=== PATIENT | female | born 2000 | race Caucasian/White ===

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

== ENCOUNTER 2019-09-27 15:37 | Emergency (ER) | payer SELFPAY ==
[2019-09-27] MEDS ORDERED: DEXAMETHASONE SOD PHOSPHATE 10MG/ML VIAL PO ONE (16:05)
--- NOTE | 2019-09-27 16:11 | Emergency Department Record ---
History of Present Illness - General Chief complaint: Allergic Reaction Stated complaint: POSSIBLE ALLERGIC REACTION Time Seen by Provider: 09/27/19 16:05 Source: Patient Mode of Arrival: Ambulatory Limitations: No limitations - History of Present Illness Initial Comments: Pt to the ED for concern of swelling in the lips and tightness in her throat. Thinks this may be a reaction to a new lip ointment. Pt has asthma by hx. No other new foods, meds, travel. No fever or cough. Tearful during interview. Onset/Timin -: Days(s) Exposure: Unknown Symptoms: Orolingual swelling Severity: Mild Treatment Prior to Arrival: Benadryl, Bronchodilator, Epinephrine Previous Allergy History: None - Related Data Allergies Allergy/AdvReac Type Severity Reaction Status Date / Time No Known Drug Allergies Allergy Verified 09/27/19 15:41 Travel/Exposure Screening - Travel/Exposure Within Last 30 Days Have you traveled within the last 30 days?: No - Travel/Exposure Within Last Year Have you traveled outside the [place] in the last year?: No - Additonal Travel/Exposure Details Have you been exposed to anyone with a communicable illness?: No - Travel Symptoms Symptom Screening: None Review of Systems Constitutional: Denies: Chills, Fever Eyes: Denies: Eye discharge, Eye pain ENT: Reports: As per HPI, Throat pain. Denies: Congestion Respiratory: Denies: Cough Cardiovascular: Denies: Chest pain, Syncope Endocrine: Denies: Fatigue Gastrointestinal: Denies: Abdominal pain, Constipation, Nausea, Vomiting Musculoskeletal: Denies: Back pain Skin: Denies: Bruising, Rash Neurological: Denies: Confusion, Tingling Psychiatric: Reports: Anxiety Hematological/Lymphatic: Denies: Anemia Past Medical History - SOCIAL HISTORY Smoking Status: Never smoker Alcohol Use: None Drug Use: None - RESPIRATORY Hx Respiratory Disorders: Yes Hx Asthma: Yes ("asthma attack after EGD on 10/20") - CARDIOVASCULAR Hx Cardio Disorders: No - NEURO Hx Neuro Disorders: Yes Hx Headaches: Yes Hx of Migraines: Yes Comment:: tinnitus - GI Hx GI Disorders: Yes Comment:: severe constipation, fills quickly at meals - Hx Genitourinary Disorders: Yes Hx Bladder Problem: Yes (painful urination) - ENDOCRINE Hx Endocrine Disorders: No - MUSCULOSKELETAL Hx Musculoskeletal Disorders: Yes Comment:: achy joints-upper body - PSYCH Hx Psych Problems: No - HEMATOLOGY/ONCOLOGY Hx Hematology/Oncology Disorders: No Family Medical History Any Significant Family History?: Yes Hx Cancer: Grandparents Hx Diabetes: Mother Hx Heart Disease: Grandparents Physical Exam - General General Appearance: Alert, Oriented x3, Cooperative, No acute distress - Head Head exam: Atraumatic, Normocephalic - Eye Eye exam: Normal appearance, PERRL - ENT ENT exam: Mucous membranes moist, Normal external ear exam, Normal orophraynx, TM's normal bilaterally Mouth exam: Other (Uvula midline airway wide and patent. Trachea midline. ). negative: Drooling, Muffled voice Throat exam: Normal inspection, Other (Lips without swelling. ). negative: Tonsillomegaly, Tonsillar exudate - Neck Neck exam: Normal inspection, Full ROM. negative: Lymphadenopathy, Tenderness - Respiratory Respiratory exam: Normal lung sounds bilaterally. negative: Respiratory distress, Wheezes - Cardiovascular Cardiovascular Exam: Regular rate, Normal rhythm. negative: Tachycardia - GI/Abdominal GI/Abdominal exam: Soft. negative: Tenderness - Extremities Extremities exam: Normal inspection - Neurological Neurological exam: Alert, Normal gait, Oriented X3 - Psychiatric Psychiatric exam: Anxious, Normal mood - Skin Skin exam: Normal color. negative: Rash Course Vital Signs 09/27/19 15:43 Temperature 97.9 F Pulse Rate 94 H Respiratory 18 Rate Blood Pressure 152/92 Pulse Ox 97 - Reevaluation(s) Reevaluation #1: 09/27/19 16:11 Seen and exam. Airway patent with no wheeze in lungs. Lips not swollen. Discussed plan. Pt agrees. Disposition Disposition: Discharge Clinical Impression: Allergic reaction Qualifiers: Encounter type: initial encounter Qualified Code(s): T78.40XA - Allergy, unspecified, initial encounter Disposition: Home, Self-Care Condition: (1) Good Instructions: General Allergic Reaction (ED) Additional Instructions: Take over the counter generic ZYRTEC 10 mg once a day. Stop use of the lip ointment See your family doctor in 3 days Use your inhaler at home Return to the ED as needed. Time of Disposition: 16:08 Quality - Quality Measures Quality Measures: N/A - Blood Pressure Screening Does Patient Have Any of the Following: No Blood Pressure Classification: Hypertensive Reading Systolic Measurement: 152 Diastolic Measurement: 92 Screening for High Blood Pressure: < Pre-Hypertensive BP, F/U Documented > [[id number]] Pre-Hypertensive Follow-up Interventions: Follow-up with rescreen every year.
[2019-09-27] MEDS ORDERED: LORATADINE 10 MG TABLET PO SCH (16:15)
== END 2019-09-27 16:26 | disposition home or self-care (01) ==
LOC: ER 15:37
DX: T78.40XA Allergy, unspecified, initial encounter (principal); K13.0 Diseases of lips; X58.XXXA Exposure to other specified factors, initial encounter
CPT/HCPCS: 99283